=== PATIENT | male | born 1965 | race Caucasian/White ===

== ENCOUNTER 2017-09-29 17:14 | Emergency (ER) | payer OTHER ==
[2017-09-29 17:48] LABS: APPEARANCE HAZY (CLEAR); BILIRUBIN NEGATIVE (NEGATIVE); COLOR YELLOW (YELLOW); GLUCOSE NEGATIVE (NEGATIVE); KETONE NEGATIVE (NEGATIVE); NITRITE NEGATIVE (NEGATIVE); PROTEIN NEGATIVE (NEGATIVE); UROBILINOGEN NORMAL (NORMAL)
[2017-09-29 17:51] LABS: AMORPHOUS SEDIMENT <1+ /lpf (NONE SEEN); BACTERIA MODERATE /hpf (NONE SEEN)
[2017-09-29 17:55] LABS: BASOPHILS 0.1 % (0-2); EOSINOPHILS 0.6 % (0-7); HEMATOCRIT 40.6 % (42.0-54.0); IMMATURE GRANULOCYTES 0.3 % (0-5); LYMPHOCYTES 8.6 % (15-50); MCH 31.3 pg (26.0-34.0); MCHC 34.5 g/dL (31.0-37.0); MCV 90.8 fL (80.0-100.0); MEAN PLATELET VOLUME 9.3 fL (7.4-10.4); MONOCYTES 7.6 % (2-11); NEUTROPHILS 82.8 % (40-80); PLATELET COUNT 210 10x3/uL (130-400); RBC 4.47 10x6/uL (4.20-6.10); RDW 12.3 % (11.5-14.5); WBC 8.6 10x3/uL (4.8-10.8)
[2017-09-29 18:09] LABS: ALBUMIN 4.2 g/dL (3.4-5.0); ANION GAP 10.4 mmol/L (8-16); BILIRUBIN - TOTAL 0.43 mg/dL (0.2-1.3); CALCIUM 9.3 mg/dL (8.5-10.1); CARBON DIOXIDE 29.5 mmol/L (21.0-32.0); CREATININE - SERUM 1.3 mg/dL (0.6-1.3); POTASSIUM - SERUM 3.9 mmol/L (3.5-5.1); PROTEIN - SERUM 7.7 g/dL (6.4-8.2)
[2017-10-03] MEDS ORDERED: FLOMAX0.4 MG PO (13:44)
[2017-10-03] MEDS ORDERED: HORIZANT PO (13:44)
[2017-10-03] MEDS ORDERED: ASPIRIN EC81 M1 PO (13:45)
[2017-10-03] MEDS ORDERED: NORVASC10 MG PO ×2 (13:45)
[2017-10-03] MEDS ORDERED: LEXAPRO20 MG PO (13:46)
[2017-10-04 08:45] VITALS: BMI 33.7
== END 2017-09-29 21:05 | disposition home or self-care (01) ==
LOC: D.ER 17:14
PROVIDERS: Emergency Medicine
DX: N20.1 Calculus of ureter (principal); I10 Essential (primary) hypertension

== ENCOUNTER 2017-10-04 07:45 | Day surgery (SDC) | payer OTHER ==
[~2017-10-04] VITALS: Ht 177.8 cm; Wt 106.6 kg
[~2017-10-04 07:45] MED LIST: ASPIRIN EC81 M1 PO; FLOMAX0.4 MG PO; HORIZANT PO; LEXAPRO20 MG PO; NORVASC10 MG PO
[2017-10-04 08:34] LABS: HEMATOCRIT 38.8 % (42.0-54.0); HEMOGLOBIN 13.4 g/dL (13.5-17.5); MCH 31.3 pg (26.0-34.0); MCHC 34.5 g/dL (31.0-37.0); MCV 90.7 fL (80.0-100.0); MEAN PLATELET VOLUME 9.5 fL (7.4-10.4); RBC 4.28 10x6/uL (4.20-6.10); RDW 12.2 % (11.5-14.5); WBC 10.9 10x3/uL (4.8-10.8)
[2017-10-04] MEDS ORDERED: HYDROCODON-ACE1 EAC7 PO (08:44)
[2017-10-04 08:45] VITALS: Ht 177.8 cm; Wt 106.6 kg
--- NOTE | 2017-10-04 15:28 | NUR ---
1450--IV DC'D. SHAMAR AGUILERA 1505--DISCHARGE INSTRUCTIONS GIVEN, PT VERBALIZES UNDERSTANDING. PT OFF UNIT VIA WC. SHAMAR AGUILERA
--- NOTE | 2017-10-04 16:52 | OP ---
PATIENT NAME: CARMITA UP MEDICAL RECORD: [id number] :61 LOCATION:[facility] ADMISSION DATE: SURGEON: FABIANO VARGAS MD DATE OF OPERATION: 10/04/2017 SURGEON: Fabiano Vargas MD. ANESTHESIA: General anesthesia by Dr. Wiggins. PREOPERATIVE DIAGNOSIS: Left distal ureteral stone. PROCEDURES: Cystoscopy, left ureteroscopy and left ureteral stent insertion 6-Bengali x 24 cm with string attached. FINDINGS: No radiodense stone visible. Single ureteral orifices bilaterally. No bladder tumors. No stone was seen, it must have passed. Nonobstructive prostate. CLINICAL HISTORY: This is a 52-year-old male, who was referred from the Emergency Room with a 2 mm left UV junction stone. He had no prior history of kidney stones. When I saw him in the office, he was actually pain free and I was wondering if he had actually passed the stone. Soon after he left my office, he complained of severe left-sided flank pain again. He is now scheduled for left ureteroscopy and stone extraction. This morning, he was in so much pain that he again went to the Emergency Room and he was referred to the preoperative holding area as he was having a procedure today anyway to get rid of the stone. He is allergic to PENICILLIN. He was given Levaquin IV furniture rental consultant to the OR. DESCRIPTION OF PROCEDURE: The patient was given induction of general anesthesia. He was then placed in the dorsal lithotomy position and prepped and draped. A 21-Bengali cystoscope with 30-degree lens was used for visualization. Findings are as outlined above. A Sensor wire was placed in the left ureteral orifice. Fluoroscopy revealed no radiodense stones visible. Left ureteral orifice was dilated using a UroMax ureteral dilation balloon, 21-Bengali x 4 cm in size. This was dilated up to 14 atmospheres of pressure for a few seconds and then deflated. The balloon dilation catheter was removed entirely leaving the Sensor wire in place. The cystoscope was then removed, leaving the Sensor wire in place. Going beside the sensor wire into the left ureter all the way up to the UP junction of the ureter, I could not find any stone. He must have passed the stone. The ureteroscope was then removed and the wire was backloaded on to the cystoscope. Over the wire, the 6-Bengali x 24 cm ureteral stent was placed. Once the proximal end was in the renal pelvis, we withdrew the wire to allow the proximal end to coil. The wire was then completely removed. The distal end was pushed into the bladder using a pusher. The string on the distal end was still attached and it hangs out to the penile urethra. This was tied to itself in a knot and cut shorter. The patient was awakened and brought to the recovery room. TRANSINT:[id number] Voice Confirmation ID: [id number] DOCUMENT ID: [id number] OPERATIVE REPORT [id number] CARMITA UP ROBERT S MD at 1652 CC: [id number] DICTATION DATE: 10/04/17 1249 [place] COORDINATOR: 10/04/17 1317 [facility] 10/04/17 [id number] [place] [address]
== END 2017-10-04 14:05 | disposition home or self-care (01) ==
LOC: D.OPS 07:45 → D.PAN 11:00 → D.OPS 11:00 → D.PAN 11:15 → D.OPS 11:15
PROVIDERS: Anesthesiology
DX: N21.1 Calculus in urethra (principal); I10 Essential (primary) hypertension; K21.9 Gastro-esophageal reflux disease without esophagitis; G47.30 Sleep apnea, unspecified; Z01.812 Encounter for preprocedural laboratory examination

== ENCOUNTER 2017-10-08 05:31 | Emergency (ER) | payer OTHER ==
[2017-10-04 08:45] VITALS: BMI 33.7
[~2017-10-08 05:31] MED LIST changes: +HYDROCODON-ACE1 EAC7 PO
[2017-10-08 05:58] LABS: APPEARANCE HAZY (CLEAR); COLOR PINK (YELLOW); NITRITE NEGATIVE (NEGATIVE)
[2017-10-08 05:59] LABS: BACTERIA NONE SEEN /hpf (NONE SEEN); BILIRUBIN NEGATIVE (NEGATIVE); EPITHELIAL CELLS NSEEN /hpf (0-5); GLUCOSE NEGATIVE (NEGATIVE); KETONE NEGATIVE (NEGATIVE); PROTEIN 2+ mg/dL (NEGATIVE); RED CELLS - URINE >50 /hpf (0-5); UROBILINOGEN NORMAL (NORMAL); WHITE CELLS - URINE RARE /hpf (0-5)
== END 2017-10-08 06:49 | disposition home or self-care (01) ==
LOC: D.ER 05:31
PROVIDERS: Emergency Medicine
DX: R10.9 Unspecified abdominal pain (principal); I10 Essential (primary) hypertension

== ENCOUNTER → 2017-10-12 10:15 | Outpatient (CLI) | payer OTHER ==
[2017-10-04 08:45] VITALS: BMI 33.7
== END | disposition home or self-care (01) ==
LOC: D.CT 10:15
DX: N20.0 Calculus of kidney (principal)

== ENCOUNTER → 2019-01-07 08:47 | Outpatient (CLI) | payer OTHER ==
[2017-10-04 08:45] VITALS: BMI 33.7
== END | disposition home or self-care (01) ==
LOC: D.HCCARDIO 08:47
PROVIDERS: ATTEND Internal Medicine Cardiovascular Disease
DX: R06.00 Dyspnea, unspecified (principal); R06.02 Shortness of breath

== ENCOUNTER → 2019-01-07 09:58 | Outpatient (CLI) | payer OTHER ==
[2017-10-04 08:45] VITALS: BMI 33.7
== END | disposition home or self-care (01) ==
LOC: D.HCCARDIO 09:00
PROVIDERS: ATTEND Internal Medicine Cardiovascular Disease
DX: R06.00 Dyspnea, unspecified (principal); R06.02 Shortness of breath

== ENCOUNTER 2019-01-22 10:57 | Outpatient (CLI) | payer OTHER ==
[~2019-01-22] VITALS: Ht 177.8 cm; Wt 106.8 kg
--- NOTE | ~2019-01-22 | HEMODYNAMI ---
PATIENT:CARMITA UP MEDICAL RECORD: [id number] : 61 LOCATION:[facility] ADMISSION DATE: 01/22/19 Generatedon:01/22/201914:04 Patient name: CARMITA UP Patient #: [id number] SSN: : Date of study: 01/22/2019 Page: Of Hemodynamic Procedure Report Patient Data Patient Demographics Procedure consent was obtained First Name: CARMITA Gender: Male Last Name: ANNEL : 1965 Patient #: [id number] Age: 54 year(s) Race: Unknown Additional ID: [id number] Contact details Address: [address] [address] State: [place] City: [place] Zip code: [address] Past Medical History Allergies Allergen Reaction Date Comments Reported Other allergy 01/22/2019 PCN Admission Admission Data Admission Date: 01/22/2019 Admission Time: 10:57 Lab Results Lab Result Date: 01/22/2019 Lab Result Time: 0:00 Biochemistry Name Units Result Min Max BUN mg/dl 20 --(----)*- 7 18 Creatinine mg/dl 1.3 --(---*)-- 0.6 1.3 CBC Name Units Result Min Max Hemoglobin g/dl 13.9 --(*---)-- 13.5 17.5 Procedure Procedure Types Cath Procedure Diagnostic Procedure [facility] w/Coronaries Procedure Description Procedure Date Procedure Date: 01/22/2019 Procedure Start Time: 13:49 Procedure End Time: 14:03 Procedure Staff Name Function Gagan Meraz MD Performing Physician Brianne Beasley RT Monitor Manjinder Mosquera RN Nurse Melissa Palomo RT Scrub Procedure Data Cath Procedure Fluoroscopy Diagnostic fluoroscopy Total fluoroscopy Time: 3.7 time: 3.7 min min Diagnostic fluoroscopy Total fluoroscopy dose: 876 dose: 876 mGy mGy Contrast Material Contrast Material Type Amount (ml) Isovue 300 87 Entry Location Entry Primary Successful Side Size Upsize Upsize Entry Closure [place] ccessful Closure Location (Fr) 1 (Fr) 2 (Fr) Remarks Device Remarks Radial Right 6 Fr Mechanical artery Short Compression Estimated blood loss: 10 ml Diagnostic catheters Device Type Used For End Catheter Placement DIAGNOSTIC Alexis 110cm Procedure 5Fr catheter ([id number]) DIAGNOSTIC [place] 110cm 5 Procedure Fr catheter (200406) DIAGNOSTIC Pigtail 5Fr LV Angiography catheter ([id number]) Procedure Complications No complications Procedure Medications Medication Administration Route Dosage 0.9% NaCl I.V. 100 ml/hr Oxygen etCO2 Nasal cannula 2 l/min Heparin Flush Bag 2 bags (1000units/500ml NS) Lidocaine 2% added to field 20 Radial Cocktail added to field 1 syringe (Verapomil 2mg/Nitro 400mcg/Heparin 1500units) Versed I.V. 2 mg Fentanyl I.V. 100 mcg Versed I.V. 1 mg Radial Cocktail I.A. 1 syringe (Verapomil 2mg/Nitro 400mcg/Heparin 1500units) Hemodynamics Rest HGB: 13.9 (g/dl) Heart Rate: 59 (bpm) Pressure Samples Time Site Value (mmHg) Purpose Heart Use Rate(bpm) 13:50 LV 113/6,6 EDP 142 13:51 AO 127/73(92) Pullback 63 13:59 AO 123/69(92) Pullback 62 13:59 LV 130/-1,15 Pullback 62 Gradients Valve Time Site 1 Site 2 Mean SEP/DFP Peak To Heart Use (mmHg) (sec/min) Peak Rate (mmHg) (bpm) Aortic 13:51 LV AO 30 5 63 127/73(92) Aortic 13:59 LV AO 10 17 7 62 130/-1,15 123/69(92) Calculations Valve P-P Mean Valve Index Valve Source Name Gradient Area Flow (cm2) Aortic 7 10 7 10 Snapshots Pre Cath Intra NCS Post Cath Vital Signs Time Heart Resp SPO2 etCO2 NIBP (mmHg) Rhythm Pain Sedation Rate (ipm) (%) (mmHg) Status Level (bpm) 13:38:44 58 11 99 37.9 153/92(123) NSR 0 (11) 10(A) , No pain 13:44:05 57 14 96 11.3 153/42(90) NSR 0 (11) 10(A) , No pain 13:48:21 60 10 98 32.6 148/85(114) NSR 0 (11) 10(A) , No pain 13:52:39 64 11 96 43.2 137/71(101) NSR 0 (11) 9(A) , No pain 13:56:58 91 11 97 40.9 139/69(107) NSR 0 (11) 9(A) , No pain 14:01:11 65 14 97 40.1 138/75(111) NSR 0 (11) 10(A) , No pain Medications Time Medication Route Dose Verified Delivered Reason Notes Effectiveness by by 13:36:57 0.9% NaCl I.V. 100 Manjinder Manjinder Per ml/hr Eveline Mosquera physician RN RN 13:37:05 Oxygen etCO2 2 l/min Manjinder Manjinder for low 02 Nasal Lorigan Lorigan sats cannula RN RN 13:37:16 Heparin Flush 2 bags Manjinder Manjinder used for Bag Lorigan Lorigan procedure (1000units/500ml ALE RN NS) 13:37:29 Lidocaine 2% added 20ml Manjinder Manjinder for local to vial Lorigan Lorigan anesthetic field AGUILERA RN 13:37:38 Radial Cocktail added 1 Manjinder Manjinder used for (Verapomil to syringe Lorigan Lorigan procedure 2mg/Nitro field ALE AGUILERA 400mcg/Heparin 1500units) 13:45:39 Versed I.V. 2 mg Manjinder Manjinder for sedation Eveline Mosquera RN RN 13:45:47 Fentanyl I.V. 100 mcg Manjinder Manjinder for sedation Eveline Mosquera RN RN 13:46:54 Versed I.V. 1 mg Manjinder Manjinder for sedation Eveline Mosquera RN RN 13:49:33 Radial Cocktail I.A. 1 Manjinder Gagan for (Verapomil syringe Eveline Meraz MD vasodilation 2mg/Nitro RN 400mcg/Heparin 1500units) Procedure Log Time Note 13:09:18 Time tracking: Regular hours (M-F 7:00 - 5:00) 13:09:22 Plan of Care:Hemodynamics will remain stable., Cardiac rhythm will remain stable., Comfort level will be maintained., Respiratory function will remain adequate., Patient/ family verbilizes understanding of procedure., Procedure tolerated without complication., Recovers from procedure without complications.. 13:29:32 Patient received from Pre/Post Procedure Room to [facility] 2 Alert and oriented. Tansferred to table in Supine position. 13:29:33 Warm blankets applied, and felicita hugger turned on for patient comfort. 13:29:34 Correct patient and procedure confirmed by team. 13:29:35 Signed procedure consent form obtained from patient. 13:29:38 ECG and BP/O2 sat monitors applied to patient. 13:29:39 Full Disclosure recording started 13:36:57 0.9% NaCl 100 ml/hr I.V. was administered by Manjinder Mosquera RN; Per physician; 13:37:05 Oxygen 2 l/min etCO2 Nasal cannula was administered by Manjinder Mosquera RN; for low 02 sats; 13:37:16 Heparin Flush Bag (1000units/500ml NS) 2 bags was administered by Manjinder Mosquera RN; used for procedure; 13:37:29 Lidocaine 2% 20ml vial added to field was administered by Manjinder Mosquera RN; for local anesthetic; 13:37:38 Radial Cocktail (Verapomil 2mg/Nitro 400mcg/Heparin 1500units) 1 syringe added to field was administered by Manjinder Mosquera RN; used for procedure; 13:37:42 Vital chart was started 13:38:43 Baseline sample Acquired. 13:38:47 Rhythm: sinus rhythm 13:39:11 H&P Date Dictated: 12/31/2018 Within 30 days and on chart.. 13:39:12 Pre-procedure instructions explained to patient. 13:39:14 Family in waiting room. 13:39:17 Patient NPO since Midnight. 13:39:29 Patient allergic to Other allergyPCN 13:39:34 Is the patient allergic to Iodine/contrast media? No. 13:39:51 Was the patient premedicated? Yes 13:39:54 Is patient on blood thinner?No 13:39:55 Patient diabetic? No. 13:40:00 Snore? Yes 13:40:06 Sleep apnea? Yes 13:40:13 Patient pain scale 0/10 ?. 13:40:19 IV patent on arrival in left forearm with 0.9% NaCl at [facility]. 13:42:34 Lab results completed and on chart. 13:43:09 Lab Result : BUN 20 mg/dl 13:43:09 Lab Result : Creatinine 1.3 mg/dl 13:43:09 Lab Result : Hemoglobin 13.9 g/dl 13:43:13 Zero performed for pressure channel P1 13:43:37 Right Radial & Right Groin area was prepped with chlora-prep and draped in sterile fashion 13:43:38 Alarms reviewed by R. N. 13:43:39 Sharps counted by scrub and verified by R.N. 13:43:48 Physician arrived 13:43:49 --------ALL STOP TIME OUT------ 13:43:50 Final Timeout: patient, procedure, and site verified with staff and physician. All members of the team are in agreement. 13:43:52 Right Radial & Right Groin site verified by team. 13:43:58 Maximum allowable Isovue 300 dose 300ml. Physician notified. (300ml for normal creatinines. For patients with creatinine of 1.7 or higher multiply weight(kg) x 5 divided by creatinine.) 13:44:04 Fire Safety Assessment: A--An alcohol-based skin anteseptic being used preoperatively., C--Open oxygen or nitrous oxide is being used., D--An ESU, laser, or fiber-optic light is being used. 13:44:09 Physical assessment completed. ASA score P 2 - A patient with mild systemic disease as per Gagan Meraz MD. 13:44:13 Sedation plan: IV Moderate Sedation Medication:Versed, Fentanyl 13:45:39 Versed 2 mg I.V. was administered by Manjinder Mosquera RN; for sedation; 13:45:42 Pre procedure: right dorsailis pedis pulse 1+ Palpable, but thready & weak; easily obliterated 13:45:47 Fentanyl 100 mcg I.V. was administered by Manjinder Mosquera RN; for sedation; 13:46:54 Versed 1 mg I.V. was administered by Manjinder Mosquera RN; for sedation; 13:48:31 Use device set Radial Dx or PCI 13:48:33 ACIST Syringe (02921) opened to sterile field. 13:48:34 Medline Cath Pack ([id number]) opened to sterile field. 13:48:34 Bag Decanter () opened to sterile field. 13:48:35 DIAGNOSTIC WIRE .035 260cm J wire (192439) opened to sterile field. 13:48:36 ACIST Hand Control (70016) opened to sterile field. 13:48:37 ACIST Manifold (99065) opened to sterile field. 13:48:45 MBrace Wrist Support ([id number]) opened to sterile field. 13:48:46 NEEDLE Cook 21G 4cm Radial (Z93786) opened to sterile field. 13:48:48 SHEATH 6FR Slender (07-3794) opened to sterile field. 13:48:55 Procedure started. 13:49:07 Local anesthetic to right radial artery with Lidocaine 2% by Gagan Meraz MD.INITIAL ACCESS ONLY 13:49:33 Radial Cocktail (Verapomil 2mg/Nitro 400mcg/Heparin 1500units) 1 syringe I.A. was administered by Gagan Meraz MD; for vasodilation; 13:49:35 A 6 Fr Short sheath was inserted into the Right Radial artery 13:50:11 A DIAGNOSTIC Alexis 110cm 5Fr catheter ([id number]) was advanced over the wire and used for Procedure. 13:51:03 EF : 50 % 13:51:31 LV angiography performed. 13:51:39 RCA angiography performed. 13:52:54 Catheter removed. 13:53:12 A DIAGNOSTIC [place] 110cm 5 Fr catheter ([id number]) was advanced over the wire and used for Procedure. 13:53:42 LCA angiography performed. 13:58:29 A DIAGNOSTIC Pigtail 5Fr catheter ([id number]) was advanced over the wire and used for LV Angiography. 13:59:27 TR BAND Large ([id number]) opened to sterile field. 13:59:31 Catheter removed. 14:00:12 Sheath removed intact; hemostasis achieved with Mechanical Compression to the Right Radial artery. 14:00:16 Procedure ended.(Physican Out) 14:01:57 Fluoroscopy time 03.70 minutes. 14:02:02 Fluoroscopy dose: 876 mGy 14:02:02 Flurop Dose total: 876 14:02:08 Contrast amount:Isovue 300 87ml. 14:02:14 Sharps counted by scrub and verified by R.N. 14:02:17 TR band inflated with 13cc of air. 14:02:19 Insertion/operative site no bleeding no hematoma. 14:02:21 Post Procedure Pulses reassessed and unchanged 14:02:29 Post-procedure physical assessment completed. ASA score P 2 - A patient with mild systemic disease as per Gagan Meraz MD. 14:02:35 Post procedure rhythm: unchanged. 14:02:37 Estimated blood loss: 10 ml 14:02:40 Post procedure instruction explained to patient.Patient verbalizes understanding. 14:02:50 Procedure and supply charges have been captured, reviewed, submitted and are correct. 14:03:22 Procedure Complication : No complications 14:03:25 Vital chart was stopped 14:03:26 See physician's report for complete and final results. 14:03:28 Report given to Pre/Post Procedure Room. 14:03:31 Patient transfered to Pre/Post Procedure Room with Stretcher. 14:03:33 Procedure ended. 14:03:33 Full Disclosure recording stopped 14:03:37 End room use (Document Last) 14:03:37 End room use (Document Last) Device Usage Item Name Manufacture Quantity Catalog Hospital Part Current Minimal Lot# / Number Charge Number Stock Stock Serial# Code ACIST Acist 1 80611 448859 114230 721497 20 Syringe Medical (07527) Systems Inc Medline Medline 1 [id number] 139687 35345 261678 5 Cath Pack ([id number]) Bag Microtek 1 2001S 991009 13576 816642 5 Decanter Medical Inc. (2001S) DIAGNOSTIC [place] 1 639642 337817 057400 284592 30 WIRE .035 260cm J wire (208207) ACIST Hand Acist 1 01169 872550 080562 754480 5 Control Medical (90311) Systems Inc ACIST Acist 1 86975 789785 518320 819154 5 Manifold Medical (71348) Systems Inc MBrace Advanced 1 140-0250-00 074443 47773 456645 5 Wrist Vascular Support Dynamics ([id number]) NEEDLE Cook Cook Medical 1 B60975 214642 853353 039157 5 21G 4cm Radial (D46997) SHEATH 6FR Terumo 1 [id number] 628366 012938 457451 5 Slender (80-1060) DIAGNOSTIC Terumo 1 40-5023 600431 520694 689528 5 Alexis 110cm 5Fr catheter (545181) DIAGNOSTIC Terumo 1 40-5013 259017 323887 607178 5 [place] 110cm 5 Fr catheter (142730) DIAGNOSTIC Cardinal 1 [id number] 488854 370092 089526 5 Pigtail 5Fr Health catheter ([id number]) TR BAND Terumo 1 [id number] 031041 232740 065216 40 Large ([id number]) Signature Audit Farner Stage Time Signature Unsigned Intra-Procedure 01/22/2019 Brianne Beasley 2:04:08 PM RT(R) Signatures Monitor : Brianne Beasley Signature : RT Date : Time : [address] [address] [place] [address]
[2019-01-22] MEDS ORDERED: HYDROCHLOROTHIA25 MG PO (11:08)
[2019-01-22] MEDS ORDERED: LISINOPRIL10 MG PO (11:09)
[2019-01-22] MEDS ORDERED: NORVASC2.5 MG PO (11:10)
[2019-01-22] MEDS ORDERED: NEURONTIN 300300 MG PO (11:11)
[2019-01-22 11:32] VITALS: BP 128/71; Ht 177.8 cm; Wt 106.8 kg
[2019-01-22 11:39] LABS: BASOPHILS 0.4 % (0-2); EOSINOPHILS 1.9 % (0-7); HEMATOCRIT 39.8 % (42.0-54.0); HEMOGLOBIN 13.9 g/dL (13.5-17.5); IMMATURE GRANULOCYTES 0.2 % (0-5); LYMPHOCYTES 33.2 % (15-50); MCH 32.3 pg (26.0-34.0); MCHC 34.9 g/dL (31.0-37.0); MCV 92.3 fL (80.0-100.0); MEAN PLATELET VOLUME 9.6 fL (7.4-10.4); NEUTROPHILS 55.3 % (40-80); PLATELET COUNT 213 10x3/uL (130-400); RBC 4.31 10x6/uL (4.20-6.10); RDW 12.5 % (11.5-14.5); WBC 5.7 10x3/uL (4.8-10.8)
[2019-01-22 12:00] LABS: CALCIUM 9.3 mg/dL (8.5-10.1); CARBON DIOXIDE 27.1 mmol/L (21.0-32.0); CREATININE - SERUM 1.3 mg/dL (0.6-1.3); POTASSIUM - SERUM 4.1 mmol/L (3.5-5.1)
--- NOTE | 2019-01-22 14:25 | NUR ---
PT RESTING COMFORTBLY. VSS. RIGHT WRIST TR BAND IN PLACE. NO BLEEDING/HEMATOMA NOTED. CALL LIGHT WITHIN REACH.
--- NOTE | 2019-01-22 14:55 | NUR ---
PT RESTING COMFORTABLY. NO NEEDS AT THIS TIME. RIGHT WRIST TR BAND IN PLACE. NO BLEEDING/HEMATOMA NOTED.
--- NOTE | 2019-01-22 15:15 | NUR ---
3cc OF AIR REMOVED FROM TR BAND. NO BLEEDING/HEMATOMA NOTED. VSS.
--- NOTE | 2019-01-22 15:30 | NUR ---
3cc OF AIR REMOVED FROM TR BAND. NO BLEEDING/HEMATOMA NOTED.
--- NOTE | 2019-01-22 15:52 | NUR ---
3cc REMOVED FROM TR BAND. TOLERATING WELL. NO BLEEDING/HEMATOMA NOTED VSS
--- NOTE | 2019-01-22 16:00 | NUR ---
RIGHT ARM PIV D/C'D WITH CATH TIP INTACT. PT INSTRUCTED TO GET UP AND DRESSED.
--- NOTE | 2019-01-22 16:14 | NUR ---
DISCUSSED DISCHARGE INSTRUCTIONS WITH PT AND PT'S FAMILY. THEY VOICED UNDERSTANDING. RIGHT RADIAL TR BAND REMOVED AND DRESSING APPLIED. NO BLEEDING/HEMATOMA NOTED.
--- NOTE | 2019-01-22 16:25 | NUR ---
RIGHT WRIST DRESSING C/D/I. NO S/S OF HEMATOMA. RIGHT WRIST BRACE IN PLACE. PT TAKEN OUT TO VEHICLE BY WHEELCHAIR. NO S/S OF DISTRESS NOTED. ALL BELONGINGS IN HAND.
== END 2019-01-22 16:25 | disposition home or self-care (01) ==
LOC: D.CATH 10:57
PROVIDERS: ATTEND Internal Medicine Cardiovascular Disease
DX: I20.9 Angina pectoris, unspecified (principal); Z01.812 Encounter for preprocedural laboratory examination